=== PATIENT | female | born 1940 ===

== ENCOUNTER 2022-05-14 06:14 | Day surgery (SDC) | payer OTHER ==
[~2022-05-14 06:14] MED LIST: AMLODIP PO; FOSAMA PO; SYNTHROID75 MCG PO
== END 2022-05-14 11:05 | disposition home or self-care (01) ==
LOC: CIR.AMB 06:14
PROVIDERS: ATTEND Surgery Surgery of the Hand
DX: M65.841 Other synovitis and tenosynovitis, right hand (principal); Z20.822 Contact with and (suspected) exposure to COVID-19; I10 Essential (primary) hypertension; E03.9 Hypothyroidism, unspecified